=== PATIENT | female | born 1950 | race Caucasian/White ===

== ENCOUNTER 2017-05-03 22:18 | Inpatient (IN) | payer OTHER ==
[~2017-05-03] VITALS: Ht 152.4 cm; Wt 71.7 kg
--- NOTE | ~2017-05-03 | EKG ---
[place] [address] 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
[2017-05-03 22:20] VITALS: BP 162/85
[2017-05-03 23:07] LABS: ABSOLUTE NEUTROPHILS 4.8 thou/uL (1.4-8.2); EOSINOPHILS 1.1 % (0.0-3.0); HEMATOCRIT 37.8 % (37.0-47.0); HEMOGLOBIN 12.8 gm/dL (12.0-15.0); LYMPHOCYTES 30.8 % (24.0-44.0); MCH 28.1 pg (26.0-34.0); MCHC 33.9 g/dL (28.0-37.0); MCV 82.7 fL (80.0-100.0); MONOCYTES 7.6 % (1.0-8.0); PLATELET COUNT 232 thou/uL (150-400); POLYS 59.5 % (36.0-66.0); RBC 4.56 mil/uL (4.20-5.00); RDW 14.9 % (10.5-14.5); WBC 8.1 thou/uL (4.0-11.0)
[2017-05-03 23:13] LABS: CALCIUM 9.2 mg/dL (8.5-10.1); CREATININE 0.9 mg/dL (0.6-1.0); POTASSIUM 3.7 mmol/L (3.5-5.1)
[2017-05-03 23:22] LABS: APTT 23.5 Seconds (24.5-32.8); PROTIME 9.3 Seconds (9.3-11.4)
[2017-05-04] LABS: URINE BILIRUBIN NEGATIVE (Negative); URINE BLOOD NEGATIVE (Negative); URINE CLARITY CLEAR; URINE COLOR YELLOW; URINE GLUCOSE-RANDOM* NEGATIVE (Negative); URINE KETONES NEGATIVE (Negative); URINE LEUKOCYTES-REFLEX NEGATIVE (Negative); URINE NITRITE-REFLEX NEGATIVE (Negative); URINE PROTEIN (DIPSTICK) NEGATIVE (Negative); URINE SPECIFIC GRAVITY 1.025 (1.005-1.035); URINE UROBILINOGEN 0.2 E.U./dl (0.2-1.0)
[2017-05-04 01:17] VITALS: BP 153/72
[2017-05-04 01:39] VITALS: BP 152/71
[2017-05-04 03:10] VITALS: BP 135/76
[2017-05-04 06:10] LABS: ANION GAP 9 mmol/L (7-16); BUN 21 mg/dL (7-18); CALCIUM 8.8 mg/dL (8.5-10.1); CHLORIDE 106 mmol/L (98-107); CHOLESTEROL 242 mg/dL (<200); CO2 25 mmol/L (21-32); CREATININE 0.7 mg/dL (0.6-1.0); GLUCOSE 101 mg/dL (74-106); HDL CHOLESTEROL 43 mg/dL (>40); LDL CHOLESTEROL 155 mg/dL (<100); POTASSIUM 4.1 mmol/L (3.5-5.1); SODIUM 140 mmol/L (136-145); TC:HDL 5.6 Ratio (Not establshd); TRIGLYCERIDE 223 mg/dL (<150); VLDL 45 mg/dL (<40)
[2017-05-04 06:11] LABS: SERUM ASSESSMENT Clear
[2017-05-04 08:00] VITALS: BP 137/79
[2017-05-04 12:16] VITALS: BP 137/81
[2017-05-04 20:30] VITALS: BP 106/63
[2017-05-05 07:51] LABS: ABSOLUTE NEUTROPHILS 4.7 thou/uL (1.4-8.2); BASOPHILS 1.2 % (0.0-2.0); EOSINOPHILS 1.4 % (0.0-3.0); HEMATOCRIT 39.3 % (37.0-47.0); HEMOGLOBIN 13.3 gm/dL (12.0-15.0); LYMPHOCYTES 25.4 % (24.0-44.0); MCHC 33.9 g/dL (28.0-37.0); MCV 82.8 fL (80.0-100.0); MONOCYTES 4.2 % (1.0-8.0); PLATELET COUNT 215 thou/uL (150-400); POLYS 67.8 % (36.0-66.0); RBC 4.75 mil/uL (4.20-5.00); RDW 15.1 % (10.5-14.5); WBC 6.9 thou/uL (4.0-11.0)
[2017-05-05 07:59] LABS: CALCIUM 9.5 mg/dL (8.5-10.1); CREATININE 0.8 mg/dL (0.6-1.0); POTASSIUM 4.2 mmol/L (3.5-5.1)
[2017-05-05 08:25] VITALS: BP 111/69
[2017-05-05 20:00] VITALS: BP 120/71
[2017-05-06 07:15] VITALS: BP 107/76
[2017-05-06 10:22] LABS: TSH 3.233 uIU/mL (0.358-3.740)
[2017-05-06 10:26] VITALS: BP 107/76
[2017-07-06 09:45] VITALS: BP 107/76
[2017-07-28] MEDS ORDERED: FISH OIL 1,001000 M2 PO (08:37)
[2017-07-28] MEDS ORDERED: COQ-10100 MG PO (08:38)
[2017-07-28] MEDS ORDERED: VITAMIN D1000 UNI1 PO (08:39)
[2017-07-28] MEDS ORDERED: VITAMIN B COMP1 EACH PO (08:40)
[2017-07-28] MEDS ORDERED: ACYCLOVIR 200200 MG PO (08:40)
[2017-07-28] MEDS ORDERED: COLLAGEN HYDROLY1 GM PO (08:41)
[2017-07-28] MEDS ORDERED: [UNRECOGNIZED DRUG - OTHER] (08:42)
[2017-07-28] MEDS ORDERED: IBUPROFEN 200200 M1 PO (08:58)
[2017-12-08] MEDS ORDERED: DOXYCYCLINE HYC50 MG PO (11:14)
[2017-12-08] MEDS ORDERED: TRAMADOL 50 MG50 MG PO (12:05)
== END 2017-05-06 11:05 | disposition home or self-care (01) | DRG 69 ==
LOC: ER 22:18 → SICU 05-04 00:29 → EROBS 05-04 00:29 → 3W 05-04 00:29 → SICU 05-04 14:26 → ENTRNSPT 05-06 10:59 → EDTRNSPTSTS 05-06 11:00 → SICU 05-06 11:05
PROVIDERS: Emergency Medicine; Family Medicine; Nurse Practitioner Family; Psychiatry & Neurology Neuromuscular Medicine
DX: G45.9 Transient cerebral ischemic attack, unspecified (principal); J32.9 Chronic sinusitis, unspecified; M48.02 Spinal stenosis, cervical region; D35.2 Benign neoplasm of pituitary gland; Z88.2 Allergy status to sulfonamides; Z88.8 Allergy status to other drugs, medicaments and biological substances; Z88.6 Allergy status to analgesic agent; Z88.1 Allergy status to other antibiotic agents; Z91.011 Allergy to milk products; Z87.891 Personal history of nicotine dependence; Z79.82 Long term (current) use of aspirin; Z79.899 Other long term (current) drug therapy
CPT/HCPCS: 15001

== ENCOUNTER → 2017-07-28 | Outpatient (CLI) | payer OTHER ==
[~2017-07-28] VITALS: Ht 152.4 cm; Wt 73.5 kg
[~2017-07-28] MED LIST: ACYCLOVIR 200200 MG PO; COLLAGEN HYDROLY1 GM PO; COQ-10100 MG PO; FISH OIL 1,001000 M2 PO; IBUPROFEN 200200 M1 PO; VITAMIN B COMP1 EACH PO; VITAMIN D1000 UNI1 PO; [UNRECOGNIZED DRUG - OTHER]
--- NOTE | ~2017-07-28 | HPC ---
[facility] [address] [address] PAIN MANAGEMENT CONSULTATION Name: MANUEL VEGA JOE [id number] Admission: 07/28/17 Attend Phys: Surendra Clarke DO Discharge: Date of : 54 Report #: [id number] THIS REPORT FOR: //name// CC: Dmitri Soni DATE OF SERVICE: 07/28/2017 REFERRING PHYSICIAN: Dmitri Lazcano DO. CHIEF COMPLAINT: Neck pain, right upper extremity pain with paresthesias. HISTORY OF PRESENT ILLNESS: As you know, the patient is a 67-year-old female who reports longstanding history of neck pain and right upper extremity pain with paresthesias. The patient indicates pain began approximately one year ago. She has "just put up with it." The patient states that she has had injections by her orthopedic surgeon in the bilateral shoulders, which provided only transient improvement in symptoms. She has sought evaluation through her primary care physician who ultimately sent the patient for imaging studies. This MRI of the cervical spine showed significant enough changes. The patient was referred to our clinic to discuss options for treatment for suspected cervical radiculopathy. The patient reports today, pain is constant, describes the pain as burning, aching, sharp, numbness, tingling and tender. She places current pain score 6/10, daily average at 8/10, worst pain has been is 8/10. The patient states exercise, work and sleeping exacerbates symptoms. Chiropractic manipulation and previous intra-articular shoulder injections provided some transient improvement. She has been referred to our service to discuss treatment options for suspected cervical radiculopathy. PAST MEDICAL HISTORY: 1. Chronic anemia. 2. Endometriosis. 3. Chronic fatigue syndrome. 4. Fibromyalgia. 5. Degenerative joint disease. 6. Osteoarthritis. PAST SURGICAL HISTORY: 1. section. 2. Full hysterectomy. SOCIAL HISTORY: The patient denies tobacco, alcohol, IV or illicit drug use. 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 She is [facility] [address] [place] [address] PAIN MANAGEMENT CONSULTATION Name: SILVIAMANUEL Room #: REG Scarlett Adorno.#: [id number] Admission: 07/28/17 Attend Phys: Surendra Clarke DO Discharge: Date of : 54 Report #: [id number] not receiving workmen's compensation or she is trying to obtain disability benefits. She is not in litigation in regards to pain. REVIEW OF SYSTEMS: Positive for weight gain, night sweats, headaches, wearing corrective eyewear, double vision, hearing loss, tinnitus, chronic sinus problems, rhinitis, sore throat with voice changes, shortness of breath with walking or lying flat, painful bowel movements, constipation, frequent urination, nocturia, changes in hair and nail texture, headaches, numbness and tingling sensations, memory loss with confusion, nervousness, depression, insomnia, glandular and hormonal problems. All other review of systems negative per 12-point review of systems other than those listed in history of present illness. Pain impact score 54/70 indicating severe interference to daily activities secondary to pain. ALLERGIES: No reported drug allergies. CURRENT MEDICATIONS: Ibuprofen 200 mg 3 times a day, Bi-Est hormone replacement, acyclovir 200 mg 5 times daily, vitamin B complex 1 tab per day, cholecalciferol 1000 units per day, Coenzyme Q10 100 mg per day, omega-3 fish oil 1 tab per day. IMAGING: MRI cervical spine obtained on 05/05/2017 C2-C3 shows mild broad-base central disk protrusion, no central canal neural foraminal stenosis. C3-C4: Focal disk protrusion, no significant central canal neural foraminal stenosis. C4-C5: Mild generalized disk bulge, no central canal neural foraminal stenosis. C5-C6: General disk bulge, uncovertebral osteophyte formation, mild bilateral facet degenerative changes, narrowing of the thecal sac to 9 mm, mild central canal stenosis, severe left neural foraminal narrowing. C6-C7: Generalized disk bulge, disk osteophyte complex, mild bilateral facet degenerative changes, thecal sac measuring 9 mm, mild central canal stenosis, mild right and moderate left neural foraminal stenosis. PQRS: The patient does have osteoarthritis of the shoulders and knees. No rheumatoid arthritis. The patient's pain intensity is 6/10. She is not a fall risk, has not had a fall in the last 3 months. She is not on blood thinner. She has not treated for hypertension. She has not been on opioids for any length of time. She has a low assessment risk for opioid dependency. Functional assessment pain impact 54/70, severe. PHYSICAL EXAMINATION: VITAL SIGNS: Blood pressure 135/81, pulse 84, respiratory rate 16 and unlabored. The patient is 97% on room air. Height 5 feet tall, weight 162 pounds, BMI calculated 31.6. GENERAL: Well-developed, well-nourished, well-hydrated 67-year-old female, [address] [address] PAIN MANAGEMENT CONSULTATION Name: MANUEL VEGA Room #: REG CHARLENE Hess#: [id number] Admission: 07/28/17 Attend Phys: Surendra Clarke DO Discharge: Date of : 54 Report #: [id number] appearing her stated age, placing current pain score 6/10. HEENT: Normocephalic, atraumatic. Pupils equal, round, reactive to light. Extraocular muscles are intact. Sclerae nonicteric without injection. NEUROLOGIC: Cranial nerves 2-12 grossly intact. Speech is fluent. The patient is deemed a fair historian. LUNGS: Clear. No wheeze, rhonchi or rales. CARDIOVASCULAR: Regular. No appreciable gallop, no rub. ABDOMEN: Soft, mildly obese, normoactive bowel sounds. EXTREMITIES: Show no clubbing, no cyanosis, no edema. MUSCULOSKELETAL: Upper extremity strength appears equal and symmetrical 5/5. She is intact to light touch from C5-T1 dermatomes. Deep tendinous reflexes appear symmetrical at biceps, brachialis and triceps. Spurling's test positive left, negative right. Muscle bulk and tone equal and symmetrical in upper extremities. There is mild loss of cervical lordotic curvature in normal stance. ASSESSMENT: 1. Cervical radiculopathy. 2. Mild spinal stenosis of the cervical spine. 3. Displacement of cervical intervertebral disk with radiculopathy. 4. Neural foraminal stenosis of the cervical spine. 5. Cervical spondylosis with radiculopathy. 6. Chronic intractable pain. PLAN: 1. The patient has been referred to our service to discuss options for treatment for cervical radiculopathy. Given the findings and physical exam, the history patient provides, the description the patient uses in regards to pain, as well as the distribution of symptoms and the findings on the MRI, likely source of the patient's pain is a cervical radiculopathy. We have discussed with the patient the options for treatment for cervical radiculopathy in hopes of improving pain. The following was discussed with the patient today. 2. We discussed physical therapy, stretching exercises and traction techniques. We discussed medication management with the addition of a neuropathic pain medication in the form of either Neurontin, Lyrica, nortriptyline, amitriptyline, Cymbalta. We discussed cervical epidural injections under fluoroscopic guidance and surgical options. After reviewing the risks and benefits of all the proposed treatment options, the patient chose to undergo cervical epidural injection under fluoroscopic guidance. 3. The patient was advised risks and benefits of a cervical epidural injection. These risks include but are not necessarily limited to bleeding, bruising, infection, worsening pain, no relief of pain, also risk of temporary or permanent muscle weakness, temporary or permanent nerve damage, possible paralysis and . The patient states understood and wished to proceed. 4. No changes were made in today's medical management. The patient will continue current medication therapy as prior prescribed. [address] [address] PAIN MANAGEMENT CONSULTATION Name: MANUEL VEGA Room #: REG CLScarlett Hess#: [id number] Admission: 07/28/17 Attend Phys: Surendra Clarke DO Discharge: Date of : 54 Report #: [id number] 5. We will see the patient back in followup visit in approximately 3 weeks. At that time, review the efficacy of today's epidural injection and determine if next in the series of epidural injections would be necessary. 6. We wish to thank Dr. Lazcano for the referral of the patient to our clinic. We will keep you apprised of her response to treatment as we address her cervical radicular symptoms. Again, we wish to thank you for the opportunity to see this patient in consultation. PROCEDURE NOTE DESCRIPTION OF PROCEDURE: C7-T1 cervical epidural steroid injection under fluoroscopic guidance. This is the first procedure of the first series that the patient is undergoing. After obtaining written consent, the patient was taken back to the fluoroscopy suite and placed in a prone position with separate pillows under chest and forehead for decrease cervical lordosis. The skin overlying the cervical area was prepped and draped in an aseptic fashion. The C7-T1 vertebral interspace was identified by AP fluoroscopy. The skin and subcutaneous tissue overlying the target site of injection was anesthetized using 3 mL of 1% lidocaine. A 20-gauge 3.5 inch Tuohy needle was advanced under fluoroscopic guidance toward the epidural space using a midline approach. The epidural space was identified using a loss of resistance to air technique. After negative aspiration for heme or cerebrospinal fluid, a total of 1 mL of Omnipaque was injected. A cervical epidurogram was confirmed using AP and oblique fluoroscopy. After negative aspiration for heme or cerebrospinal fluid, 5 mL of a solution containing 2 mL 40 mg/mL, 80 mg total triamcinolone with 3 mL lidocaine 1% was injected in increments. Contrast spread was noted from posterior epidural space. The needle was then retracted approximately intermediate and the needle track was flushed with 1 mL of 1% lidocaine. There were no apparent new sensory deficits in the upper extremities present following the procedure. A sterile bandage was placed over the injection site. The heart rate, pulse oximetry and blood pressure were continuously monitored after the procedure. There were no apparent complications. The patient tolerated the procedure well and was carefully escorted in the recovery room in stable condition. After meeting discharge criteria, the patient was discharged home. <ELECTRONICALLY SIGNED> By: Surendra Clarke DO 07/29/17 0932 0726 [id number] Surendra Clarke DO /emelia
[2017-07-28 08:38] VITALS: BP 135/81
== END | disposition home or self-care (01) ==
LOC: PAIN 07:02
DX: M50.10 Cervical disc disorder with radiculopathy, unspecified cervical region (principal); G89.29 Other chronic pain; M48.02 Spinal stenosis, cervical region; M47.22 Other spondylosis with radiculopathy, cervical region; M19.011 Primary osteoarthritis, right shoulder; M19.012 Primary osteoarthritis, left shoulder; M17.0 Bilateral primary osteoarthritis of knee; M79.7 Fibromyalgia; D53.9 Nutritional anemia, unspecified; R53.82 Chronic fatigue, unspecified; Z90.710 Acquired absence of both cervix and uterus; Z98.890 Other specified postprocedural states; Z79.899 Other long term (current) drug therapy; Z87.891 Personal history of nicotine dependence; Z88.2 Allergy status to sulfonamides; Z88.8 Allergy status to other drugs, medicaments and biological substances; Z86.73 Personal history of transient ischemic attack (TIA), and cerebral infarction without residual deficits

== ENCOUNTER 2017-09-12 06:01 | Emergency (ER) | payer OTHER ==
[~2017-09-12] VITALS: Ht 152.4 cm; Wt 72.6 kg
--- NOTE | ~2017-09-12 | EKG ---
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
[2017-09-12] MEDS ORDERED: WELLBUTRIN 100100 MG PO (06:12)
[2017-09-12 06:46] LABS: ABSOLUTE NEUTROPHILS 3.7 thou/uL (1.4-8.2); BASOPHILS 0.8 % (0.0-2.0); EOSINOPHILS 1.9 % (0.0-3.0); HEMATOCRIT 37.6 % (37.0-47.0); LYMPHOCYTES 35.3 % (24.0-44.0); MCH 28.5 pg (26.0-34.0); MCHC 34.5 g/dL (28.0-37.0); MCV 82.7 fL (80.0-100.0); MONOCYTES 7.8 % (1.0-8.0); PLATELET COUNT 213 thou/uL (150-400); POLYS 54.2 % (36.0-66.0); RBC 4.54 mil/uL (4.20-5.00); RDW 14.6 % (10.5-14.5); WBC 6.9 thou/uL (4.0-11.0)
[2017-09-12 06:58] LABS: ANION GAP 10 mmol/L (7-16); BUN 17 mg/dL (7-18); CALCIUM 9.4 mg/dL (8.5-10.1); CHLORIDE 104 mmol/L (98-107); CO2 26 mmol/L (21-32); CREATININE 0.9 mg/dL (0.6-1.0); GLUCOSE 110 mg/dL (74-106); POTASSIUM 4.2 mmol/L (3.5-5.1); SODIUM 140 mmol/L (136-145)
[2017-09-12 07:07] LABS: TROPONIN-I <0.06 ng/mL (<0.06)
[2017-09-12 07:47] LABS: ALBUMIN 3.9 g/dL (3.4-5.0); DIRECT BILIRUBIN < 0.1 mg/dL (<0.1-0.3); SGOT 19 U/L (15-37); SGPT 34 U/L (30-65); TOTAL BILIRUBIN 0.3 mg/dL (<0.1-1.0); TOTAL PROTEIN 7.7 g/dL (6.4-8.2)
[2017-09-12] MEDS ORDERED: PROTONIX40 MG PO (08:12)
== END 2017-09-12 08:29 | disposition home or self-care (01) ==
LOC: ER 06:01
PROVIDERS: Emergency Medicine
DX: R07.89 Other chest pain (principal); E78.5 Hyperlipidemia, unspecified; Z87.891 Personal history of nicotine dependence; Z90.710 Acquired absence of both cervix and uterus; Z98.890 Other specified postprocedural states; Z88.5 Allergy status to narcotic agent; Z91.011 Allergy to milk products; Z91.018 Allergy to other foods; Z88.1 Allergy status to other antibiotic agents; Z88.2 Allergy status to sulfonamides

== ENCOUNTER → 2017-12-08 | Outpatient (CLI) | payer OTHER ==
[~2017-12-08] VITALS: Ht 152.4 cm; Wt 75.6 kg
[~2017-12-08] MED LIST changes: +DOXYCYCLINE HYC50 MG PO; +PROTONIX40 MG PO; +TRAMADOL 50 MG50 MG PO; +WELLBUTRIN 100100 MG PO
--- NOTE | ~2017-12-08 | HPC ---
[facility] [address] [address] PAIN MANAGEMENT CONSULTATION Name: MANUEL VEGA JOE Room #: REG [facility] MKoffi.#: [id number] Admission: 12/08/17 Attend Phys: Surendra Clarke DO Discharge: Date of : 54 Report #: [id number] THIS REPORT FOR: //name// CC: Dmitri Soni DATE OF SERVICE: 12/08/2017 REFERRING PHYSICIAN: Dmitri Lazcano DO. CHIEF COMPLAINT: Right shoulder pain. HISTORY OF PRESENT ILLNESS: As you know, the patient is a 67-year-old female who reports longstanding history of neck pain, right upper extremity pain and paresthesias. She underwent cervical epidural injection on 07/28/2017 with good improvement in her cervical radicular symptoms, but continues to experience right shoulder pain. She underwent MRI of the shoulder per the request of her orthopedic surgeon that showed full thickness tear of the supraspinatus tendon with no retraction and possible tear horizontal component of the biceps tendon. She has been advised to undergo surgery for her right shoulder. She has returned today in followup visit to discuss options of treatment. She describes the pain as constant, burning and aching, places pain score 8/10. Activities, work, sleep tend to exacerbate symptoms. She returns to discuss options for treatment based on the MRI of the right shoulder. ALLERGIES: SULFA, MILK, CODEINE, ALCOHOL, CIPROFLOXACIN, CLARITHROMYCIN, AMOXICILLIN, LEVOFLOXACIN. CURRENT MEDICATIONS: [place]-3 fish oil 1 tab per day, Coenzyme Q10 100 mg once a day, cholecalciferol 1000 units per day, multivitamin 1 tab per day, acyclovir 200 mg p.r.n. 5 times a day, ibuprofen 200 mg 3 times a day, doxycycline 50 mg once a day. SOCIAL HISTORY: The patient denies tobacco, alcohol, IV or illicit drug use. 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 IMAGING: MRI of the right shoulder obtained 09/21/2017 shows full thickness tear of the supraspinatus tendon on the right as well as possible tear horizontal component of the biceps tendon. PHYSICAL EXAMINATION: VITAL SIGNS: Blood pressure 125/73, pulse 76, respiratory rate 16 and unlabored. The patient is 96% on room air. Height 5 feet tall, weight 166 pounds, BMI calculated 32.5. [place] [address] PAIN MANAGEMENT CONSULTATION Name: MANUEL VEGA Room #: REG CLI [facility]#: [id number] Admission: 12/08/17 Attend Phys: Surendra Clarke DO Discharge: Date of : 54 Report #: [id number] GENERAL: Well-developed, well-nourished, well-hydrated 67-year-old female appearing stated age, placing current pain score at 8/10. HEENT: Normocephalic, atraumatic. Pupils equal, round, reactive to light. Extraocular muscles are intact. EXTREMITIES: Show no clubbing, no cyanosis, no edema. MUSCULOSKELETAL: The patient has tenderness to palpation over the right shoulder. Negative left. Active and passive range of motion of the right shoulder is intensified with pain. Spurling's test is equivocal on the right. ASSESSMENT: 1. Right rotator cuff tear. 2. Right shoulder pain. 3. Cervical radiculopathy. 4. Mild cervical spondylosis with radiculopathy. 5. Displacement of cervical intervertebral disk with radiculopathy. 6. Neural foraminal stenosis of the cervical spine. 7. Chronic intractable pain. PLAN: 1. The patient returns today in followup visit having noted excellent benefit with the cervical epidural injection with complete resolution in neck pain at this time. She continues to experience right shoulder pain for which workup was completed by Orthopedics and noted to have a full thickness supraspinatus tear without retraction and possible horizontal tear of the biceps tendon. She has been advised by Orthopedic Surgery that surgical options would be necessary. She has considered this option, but has not undergone the procedure. She is in the planning stages of her selling her home and this would require to be quite active. I did caution the patient that the full thickness tear will likely progress, especially if she remains highly active with that arm. I believe further evaluation with Orthopedics would be recommended given the fact that they have already stated that surgery option is the best in longest potentially improving option of treatment. She will follow up with Orthopedic Surgery in regards to this issue. 2. We did discuss the possibility of having the patient undergo a cervical epidural injection. She has had complete resolution of neck symptoms and I do feel that her symptoms currently are related only to this right shoulder and a cervical epidural injection would not provide us much in the way of benefit. The patient is understanding and will follow up with Orthopedics before looking towards the next in the series of cervical injections. 3. The patient was provided prescription of tramadol for pain control. I have given her 50 mg dose 1 tab p.o. q. 8 hours p.r.n. for pain. I have given the patient #60 tablets. I did provide 2 refills. If this is working well for the patient and she wishes to delay surgery, she certainly could, understanding that the possibility of the full thickness tear to continue and ultimately tenderness and rupture could occur and this would complicate her surgery. She is understanding of the concerns we have. Will utilize the tramadol for pain [facility] [address] [place] [address] PAIN MANAGEMENT CONSULTATION Name: MANUEL VEGA Room #: REG CLI MAaliyah#: [id number] Admission: 12/08/17 Attend Phys: Surendra Clarke DO Discharge: Date of : 54 Report #: [id number] control and follow up with Orthopedics. 4. We will see the patient back in followup visit on an as needed basis. We wish her luck with the surgical consultation and possible surgery of the right shoulder. We will see her back on an as needed basis. <ELECTRONICALLY SIGNED> By: Surendra Clarke DO 12/09/17 0836 1629 [id number] Surendra Clarke DO /nt
[2017-12-08 11:07] VITALS: BP 125/73
== END ==
LOC: PAIN 11-10 07:14
DX: M47.22 Other spondylosis with radiculopathy, cervical region (principal); M50.10 Cervical disc disorder with radiculopathy, unspecified cervical region; M75.101 Unspecified rotator cuff tear or rupture of right shoulder, not specified as traumatic; M48.02 Spinal stenosis, cervical region; G89.4 Chronic pain syndrome; M25.511 Pain in right shoulder; Z79.899 Other long term (current) drug therapy